=== PATIENT | female | born 1995 | race African-American/Black ===

== ENCOUNTER 2019-11-18 11:44 | Emergency (ER) | payer SELFPAY ==
[~2019-11-18] VITALS: Ht 160 cm; Wt 113.0 kg
[2019-11-18 11:52] VITALS: BP 163/88
[2019-11-18] MEDS ORDERED: IBUPROFEN 800MG TABLET PO ONE (12:45)
== END 2019-11-18 14:35 | disposition home or self-care (01) ==
LOC: ER 11:44
DX: M79.662 Pain in left lower leg (principal); M25.572 Pain in left ankle and joints of left foot; Z98.890 Other specified postprocedural states
CPT/HCPCS: 72040; 73590; 73600; 81025; 99284

== ENCOUNTER 2020-05-24 15:15 | Emergency (ER) | payer MEDICAID ==
[~2020-05-24] VITALS: Ht 165.1 cm; Wt 100.0 kg
[2020-05-24] MEDS ORDERED: KETOROLAC 60MG/2ML VIAL IM ONE (15:45)
[2020-05-24] MEDS ORDERED: HYDROCODONE/ACETAMINOPHEN 5/325MG TABLET PO ONE (15:45)
[2020-05-24] MEDS ORDERED: NAPR-1176 MT (16:56)
[2020-05-24] MEDS ORDERED: CYCL10TA7 MT (16:57)
[2020-05-24 17:14] VITALS: BP 124/78
== END 2020-05-24 17:15 | disposition home or self-care (01) ==
LOC: ER 15:15
DX: M54.5 Low back pain (principal); Z98.1 Arthrodesis status; V43.52XA Car driver injured in collision with other type car in traffic accident, initial encounter; Y93.89 Activity, other specified; Y92.488 Other paved roadways as the place of occurrence of the external cause
CPT/HCPCS: 72100; 96372; 99283; J1885; Z7610

== ENCOUNTER 2021-07-24 02:30 | Emergency (ER) | payer MEDICAID ==
[~2021-07-24] VITALS: Ht 160 cm; Wt 108.6 kg
[~2021-07-24 02:30] MED LIST: CYCL10TA7 MT; NAPR-1176 MT
[2021-07-24] MEDS ORDERED: ACETAMINOPHEN 325MG TABLET PO STA (03:25)
[2021-07-24] MEDS ORDERED: ONDANSETRON 4MG ODT PO STA (03:25)
[2021-07-24 03:46] LABS: BASOPHILS % 1.1 % (0.0-2.0); EOSINOPHILS % 1.5 % (0.0-5.0); HEMATOCRIT. 36.9 % (36.0-48.0); LYMPHOCYTES % 38.6 % (20.0-50.0); MEAN CORPUSCULAR HEMOGLOBIN 28.6 pg (28.0-32.0); MEAN PLATELET VOLUME 8.1 fl (7.4-10.4); MONOCYTES % 5.8 % (2.0-8.0); PLATELET 280 x1000/uL (130-400); RED CELL DISTRIBUTION WIDTH 14.9 % (11.6-14.6)
[2021-07-24 03:53] LABS: CHLORIDE 108 mEq/L (98-107)
[2021-07-24 04:31] LABS: HCG SCREEN NEGATIVE
[2021-07-24] MEDS ORDERED: ONDANSETRON 4MG ODT PO NR (05:15)
[2021-07-24] MEDS ORDERED: ACETAMINOPHEN 325MG TABLET PO NR (05:15)
[2021-07-24 05:24] LABS: CLARITY URINE CLEAR (CLEAR); COLOR URINE YELLOW (YELLOW); KETONES URINE 2+ (NEGATIVE); LEUKOCYTE ESTERASE URINE 1+ (NEGATIVE); NITRITE URINE NEGATIVE (NEGATIVE); OCCULT BLOOD URINE 3+ (NEGATIVE); PH URINE 5.5 (4.5-8.0); PROTEIN URINE 1+ (NEGATIVE); SPECIFIC GRAVITY URINE 1.031 (1.005-1.030)
[2021-07-24] MEDS ORDERED: NITR100C PO (06:38)
[2021-07-24] MEDS ORDERED: ONDA4TAB5 PO (06:38)
[2021-07-24 06:45] VITALS: BP 101/62
== END 2021-07-24 06:50 | disposition home or self-care (01) ==
LOC: ER 02:30
DX: N39.0 Urinary tract infection, site not specified (principal); Z98.890 Other specified postprocedural states
CPT/HCPCS: 36415; 80053; 81003; 83690; 84703; 85025; 99283; Q0162